=== PATIENT | female | born 1995 | race Caucasian/White ===

== ENCOUNTER 2023-08-16 17:24 | Emergency (ER) | payer SELFPAY ==
[2023-08-16 17:28] VITALS: BP 107/63
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
[2023-08-16 19:29] VITALS: BP 97/73
== END 2023-08-16 19:32 | disposition home or self-care (01) ==
LOC: EMR 17:24
PROVIDERS: EMERGENCY PHYSICIAN Emergency Medicine; FAMILY PHYSICIAN Family Medicine
DX: R51.9 Headache, unspecified (principal); V89.2XXA Person injured in unspecified motor-vehicle accident, traffic, initial encounter; Y92.410 Unspecified street and highway as the place of occurrence of the external cause; F90.9 Attention-deficit hyperactivity disorder, unspecified type; F17.200 Nicotine dependence, unspecified, uncomplicated
CPT/HCPCS: 99283; 73110; 73130; 73590; 73610; 73630

== ENCOUNTER 2023-10-22 11:24 | Emergency (ER) | payer SELFPAY ==
[2023-10-22 11:33] VITALS: BP 90/73
[2023-10-22 11:55] LABS: % Basophils 0.4 % (0-2); % Eosinophils 0.3 % (0-6); % Immature Granulocytes 0.2 % (0-0.5); % Monocytes 4.7 % (1.7-9.3); % Neutrophils 72.4 % (42.2-75.2); Absolute Lymphocytes 2.2 10^3/uL (1.2-3.4); Absolute Monocytes 0.5 10^3/uL (0.1-0.6); Absolute Neutrophils 7.3 10^3/uL (1.4-6.5); Hematocrit 37.8 % (37.0-47.0); Hemoglobin 13.4 g/dL (12.0-16.0); Mean Corp Hgb Conc. 35.4 g/dL (33.0-37.0); Mean Corpuscular Hgb 30.7 pg (27.0-31.0); Mean Corpuscular Volume 86.7 fL (81.0-99.0); Mean Platelet Volume 11.5 fL (7.4-10.4); Nucleated Red Blood Cells % 0 %; Platelet Count 235 10^3/uL (130-400); Red Blood Cell Count 4.36 10^6/uL (4.20-5.40); Red Cell Dist. Width 11.9 % (11.5-14.5); White Blood Cell Count 10.1 10^3/uL (4.8-10.8)
[2023-10-22 12:00] VITALS: BP 100/68
--- NOTE | 2023-10-22 12:09 | ED.GENMED ---
Addendum entered and electronically signed by Aleks Jc PA-C 10/25/23 07:57:
Urine culture with 100,000 colony-forming units of E. coli. Keflex sent to pharmacy. Spoke with patient regarding these results.
Original Note:
History of Present Illness
<LM Rolon Last Filed: 10/22/23 18:31>
General
Chief Complaint: Problems
Source: patient
Exam Limitations: none
Time Seen by Provider: 10/22/23 12:10
Nursing documentation reviewed up to this point in time: agreed with
History of Present Illness
History of Present Illness:
This is a 28 y/o female with a PMH of miscarriage presenting to emergency department today with concerns of vaginal bleeding and pelvic discomfort. Patient reports that she did a home test 2 weeks ago which was positive but believes
she may be 2 to 3 months based on her last menstrual period. Patient denies trauma to the abdomen. Patient denies any lightheadedness or dizziness. Patient states that has been unremarkable thus far other than morning sickness.
Patient has never had confirmed IUP via ultrasound, never had blood work done to confirm this . Patient does not currently follow with [facility]. Patient has never had abdominal surgery.
Past History
<LM Rolon Last Filed: 10/22/23 18:31>
Past History
ED Past Medical History: Other (ADHD, history of prior elective )
ED Past Surgical History: None
Patient has exhibited threatening behavior?: No
Social History
Tobacco: Smoker
Alcohol: Occasional
Drug: Marijuana
Personal: Single
Living: with family
Employment: Employed
Family History
Family History: Other (Noncontributory)
Review of Systems
<LM Rolon Last Filed: 10/22/23 18:31>
Review of Systems
All Other Systems: ROS reviewed and negative except as documented in HPI and ROS
Phy Exam
<Malgorzata Banegas PA-C - Last Filed: 10/22/23 18:31>
Physical Exam
Physical Exam:
General: Patient is well appearing and in no acute distress; non-toxic
Skin: Warm and dry, no rashes or lesions
Head: Normocephalic, atraumatic
Eyes: Sclera non-icteric. EOMs intact. PERRLA.
Cardiac: Regular rate and rhythm, no murmurs
Peripheral Vascular: No lower extremity swelling or edema
Pulm: Normal respiratory effort, no wheezes, rales, rhonchi
Abdomen: No abdominal tenderness to palpation
Neuro: CN II-XII intact, no focal neurologic deficits.
Psychiatric: Appropriate mood and affect.
Course
<LM Rolon Last Filed: 10/22/23 18:31>
Orders/Labs/Results
Orders:
Orders
10/22/23 11:46
Complete Blood Count/With Diff Urgent
Comprehensive Metabolic Panel Urgent
HCG, Beta Quantitative [Beta HCG Quantitative] Urgent
Is this a screen?: No
10/22/23 12:23
US 1st Trimester Urgent
Comment:
Reason For Exam: vaginal bleeding
10/22/23 12:24
Test Result ONCE
10/22/23 12:38
Type+Screen Urgent
Urinalysis Reflex To Culture Urgent
Date Specimen was Collected: 10/22/23
Time Specimen was Collected: 12:31
Urine Microscopic Reflex Cult Urgent
Urine Culture Urgent
NIC Source: U
Specimen Description:
Date Specimen was Collected: 10/22/23
Time Specimen was Collected: 12:31
Abnormal Lab Results
10/22/23 10/22/23
11:46 12:38
MPV 11.5 H fL
(7.4-10.4)
Absolute Neuts (auto) 7.3 H 10^3/uL
(1.4-6.5)
Calcium 11.2 H mg/dl
(8.4-10.2)
Urine Ketones 1+ A
(Negative)
Ur Occult Blood Reflex 1+ A
(Negative)
Urine Bacteria (Reflex) Many A
(Negative)
10/22/23 11:46
10/22/23 11:46
Vital Signs
Initial and Last Documented VS:
Initial Vital Signs
Temp Pulse Resp BP Pulse Ox
98.0 F 82 16 90/73 100
10/22/23 11:33 10/22/23 11:33 10/22/23 11:33 10/22/23 11:33 10/22/23 11:33
Last Documented Vital Signs
Temp Pulse Resp BP Pulse Ox
98.0 F 74 20 99/52 100
10/22/23 11:33 10/22/23 12:00 10/22/23 12:00 10/22/23 14:39 10/22/23 14:40
Information
Weeks gestation: Weeks: (8)
Location: Location: (intrauterine)
<Richard Aguilar MD - Last Filed: 10/22/23 14:43>
Orders/Labs/Results
Orders:
Orders
10/22/23 11:46
Complete Blood Count/With Diff Urgent
Comprehensive Metabolic Panel Urgent
HCG, Beta Quantitative [Beta HCG Quantitative] Urgent
Is this a screen?: No
10/22/23 12:23
US 1st Trimester Urgent
Comment:
Reason For Exam: vaginal bleeding
10/22/23 12:24
Test Result ONCE
10/22/23 12:38
Type+Screen Urgent
Urinalysis Reflex To Culture Urgent
Date Specimen was Collected: 10/22/23
Time Specimen was Collected: 12:31
Urine Microscopic Reflex Cult Urgent
Urine Culture Urgent
NIC Source: U
Specimen Description:
Date Specimen was Collected: 10/22/23
Time Specimen was Collected: 12:31
Abnormal Lab Results
10/22/23 10/22/23
11:46 12:38
MPV 11.5 H fL
(7.4-10.4)
Absolute Neuts (auto) 7.3 H 10^3/uL
(1.4-6.5)
Calcium 11.2 H mg/dl
(8.4-10.2)
Urine Ketones 1+ A
(Negative)
Ur Occult Blood Reflex 1+ A
(Negative)
Urine Bacteria (Reflex) Many A
(Negative)
10/22/23 11:46
10/22/23 11:46
Vital Signs
Initial and Last Documented VS:
Initial Vital Signs
Temp Pulse Resp BP Pulse Ox
98.0 F 82 16 90/73 100
10/22/23 11:33 10/22/23 11:33 10/22/23 11:33 10/22/23 11:33 10/22/23 11:33
Last Documented Vital Signs
Temp Pulse Resp BP Pulse Ox
98.0 F 74 20 99/52 100
10/22/23 11:33 10/22/23 12:00 10/22/23 12:00 10/22/23 14:39 10/22/23 14:40
Vijaylt;Malgorzata Banegas PA-C - Last Filed: 10/22/23 18:31>
MDM/Problems Addressed
Differential Diagnosis Includes:
Differentials include ectopic , implantation bleeding, miscarriage, placental abruption, vaginal lesion
MDM/Problems Addressed:
Pelvic discomfort, vaginal bleeding:
This is a 28 y/o female with a PMH of miscarriage presenting to emergency department today with concerns of vaginal bleeding and pelvic discomfort. Patient states that the bleeding started yesterday. Patient denies any dysuria. Patient has
had no confirmation of this and has not seen an [facility] yet. Patient believes she is about 3 months based on last menstrual period and had a at home test which was +2 weeks ago. On physical exam she is well-appearing,
does not only have any abdominal tenderness to palpation her vital signs are stable. Her H&H is stable. CMP unremarkable. She is AB+, no indication for RhoGAM at this time. Ultrasound reveals single intrauterine with estimated
gestational age of 8 weeks with normal heart rate and no evidence of subchorionic hemorrhage. Urinalysis not concerning for infection. Patient stable for discharge at this point, suspect possible implantation bleeding or physiologic
discharge of . Patient stable for discharge.
Chronic conditions affecting care:
n/a
Acute Exacerbation and/or Progression of Chronic Illness:
n/a
<Malgorzata Banegas PA-C - Last Filed: 10/22/23 18:31>
*Critical Care Note
Total Time (30-74mins, 75-104mins- exclusive of procedures): Not Applicable
ED Attending Note
<Malgorzata Banegas PA-C - Last Filed: 10/22/23 18:31>
-
Portions of this chart may have been created with voice recognition software.� Occasional wrong word or��sound alike� substitutions may have occurred due to the inherent limitations of voice recognition software.
<Richard Aguilar MD - Last Filed: 10/22/23 14:43>
ED Attending Note
Patient seen and examined by attending physician: Yes
ED Attending Note:
I have seen and evaluated the patient with a [id number] encounter. I have spoken to the advance practicer provider and involved in the medical history, the physical exam, medical decision making.
Evaluation and management service: agree unless noted differently below.
Results interpretation: agree unless noted differently below.
Focused HPI: 28-year-old female G2, presents to the emergency room for evaluation of spotting and lower abdominal pressure. Patient says that she recently had a positive home test but she is not exactly sure how long she has been
. She thinks that her last menstrual period was 2 to 3 months ago and so she estimates roughly 2 months . She says that recently she has been having some orangeish red spotting that is rather light and some mild lower abdominal
pressure. She thought that this was implantation bleeding but has not been able to establish care with an [facility]ENT[facility] due to insurance issues and so she decided to come to the emergency room to be evaluated.
Physical exam: Awake alert not in distress. Signs all within acceptable range. Abdomen soft, nontender to deep palpation.
Medical Decision Makin-year-old female presents with some spotting and lower abdominal pressure in the setting of recent positive home test. Estimates 2 to 3 months by last menstrual period. Difficulty establishing [facility]
care due to insurance issues although recently worked with her mother and is applying for insurance. Recent labs including a CBC and a CMP which were unremarkable. Her hCG quant was roughly 200,000. Urinalysis negative for bacteria. Type and
screen shows Rh+. She was sent for an abdominal ultrasound which showed live IUP roughly 8 weeks. Stable for discharge, she is already taking a vitamin and is working towards applying for insurance so that she can establish care with an
[facility] SCIENTIST. I did advise her regarding availability of free clinics for [facility] care and provided this information. All questions answered.
Discharge Plan
Departure
Patient Disposition: Home (Routine Discharge)
Date of Disposition: 10/22/23
Time of Disposition: 14:31
Patient with high blood pressure during this ER visit?: No
Condition: Good
Discharge Problem:
First trimester bleeding
Instructions: Bleeding in Early (DC)
Prescriptions:
No Action
No Current Medications
0
Referrals:
Mary Hensley DO [Family Provider] -
Stand Alone Forms: Return to Work
Activity Restrictions/Additional Instructions:
Please follow-up with an [facility].
Please return to the emergency department should you experience chest pain, shortness of breath, increased bleeding, pain, or any other signs or symptoms concerning to you.
Interventions
Interventions:
*Risk Screen - Suicide Last Done: 10/22/23 12:30
*General Assessment Last Done: 10/22/23 12:30
*Neglect/Abuse Screening Last Done: 10/22/23 12:30
*Nursing Disposition Last Done: 10/22/23 15:07
ED-Female Genitourinary Assessment Last Done: 10/22/23 12:30
Discharge Date and Time
Discharge Date/Time: 10/22/23 15:08
Print Language: SAO TOMEAN
[2023-10-22 12:14] LABS: ALT (SGPT) 15 U/L (0-35); AST (SGOT) 20 U/L (14-36); Albumin 4.7 g/dl (3.5-5.0); Alkaline Phosphatase 53 U/L (38-126); Blood Urea Nitrogen 9 mg/dl (7-17); Calcium 11.2 mg/dl (8.4-10.2); Carbon Dioxide 24 mmol/L (22-30); Chloride 100 mmol/L (98-107); Glucose 93 mg/dl (70-99); Potassium 4.5 mmol/L (3.5-5.1); Sodium 136 mmol/L (135-145); Total Bilirubin 0.6 mg/dl (0.2-1.3); Total Protein 7.4 g/dl (6.3-8.2); eGFR > 60.00
[2023-10-22 14:05] LABS: Urine Albumin Negative (Neg - Trace); Urine Bilirubin Negative (Negative); Urine Character Clear (Clear); Urine Color Yellow; Urine Glucose Negative (Negative); Urine Ketone 1+ (Negative); Urine Leukocyte Negative (Negative); Urine Nitrite Negative (Negative); Urine Occult Blood 1+ (Negative); Urine Specific Gravity 1.015 (<1.030); Urine Urobilinogen Negative (Neg - 1+); Urine pH 6.5 (5.0-9.0)
[2023-10-22 14:39] VITALS: BP 99/52
[2023-10-22 14:55] LABS: Urine Mucus Many
[2023-10-22 14:56] LABS: Urine Amorphous Seen; Urine Squamous Cell >30 /LPF (Few)
[2023-10-22 14:57] LABS: Urine Bacteria Many (Negative); Urine Red Blood Cell 0-2 /HPF (0-2)
== END 2023-10-22 15:08 | disposition home or self-care (01) ==
LOC: EMR 11:24
PROVIDERS: Emergency Medicine; Physician Assistant; EMERGENCY PHYSICIAN Emergency Medicine; FAMILY PHYSICIAN Family Medicine
DX: O20.9 Hemorrhage in early pregnancy, unspecified (principal); Z3A.08 8 weeks gestation of pregnancy; O23.41 Unspecified infection of urinary tract in pregnancy, first trimester; N39.0 Urinary tract infection, site not specified; O99.331 Smoking (tobacco) complicating pregnancy, first trimester; F17.200 Nicotine dependence, unspecified, uncomplicated; F90.9 Attention-deficit hyperactivity disorder, unspecified type
CPT/HCPCS: 99284; 76801; 80053; 81003; 81015; 84702; 85025; 86850; 86900; 86901; 87077; 87086; 87186

== ENCOUNTER → 2024-01-22 12:57 | Outpatient (REF) | payer OTHER, SELFPAY | LOC: PNTC 12:57 | PROVIDERS: ATTENDING PHYSICIAN Student in an Organized Health Care Education/Training Program; PRIMARYCARE PHYSICIAN Family Medicine | DX: Z36.0 Encounter for antenatal screening for chromosomal anomalies (principal) | CPT/HCPCS: 76805 ==

== ENCOUNTER 2024-01-28 16:19 | Emergency (ER) | payer OTHER, SELFPAY ==
[2024-01-28 16:36] VITALS: BP 109/56
--- NOTE | 2024-01-28 16:37 | ED.GENMED ---
ED Provider Triage
<Lily Rojas PA-C - Last Filed: 01/28/24 16:41>
-
Patient seen by provider in Triage?: Seen in Triage
Attestation: A medical screening examination has been initiated by a qualified medical provider. Based on the assessment performed at this time, it has been determined that an emergent medical condition may exist and the patient has been informed
that further medical evaluation and possible additional diagnostic testing may be needed.
HPI: 28yoF here with L flank pain that began this afternoon. +Chills. +Nausea, no vomiting. Currently 22 weeks . Hx of pyelonephritis and this feels the same. No abdominal pain or vaginal bleeding.
GENERAL: Alert , in no apparent distress
EYE: No visual abnormalities.
NECK: Trachea midline
ENT: No visible abnormalities.
LUNGS: No acute respiratory distress
NEUROLOGICAL: Alert and oriented
SKIN: Skin intact. No visible changes.
MUSCULOSKELETAL: Moving extremities normally
PSYCH: Normal and appropriate interaction.
This is a medical evaluation conducted in person to initiate diagnostic evaluation and provide initial therapeutics. Please see further documentation by the treating clinician.
CBC, CMP, UA, and renal ultrasound.
History of Present Illness
<Lily Rojas PA-C - Last Filed: 01/28/24 16:41>
General
Chief Complaint: Back Pain
Time Seen by Provider: 01/28/24 20:34
<Matt Padilla DO - Last Filed: 01/29/24 20:26>
General
Source: patient
Nursing documentation reviewed up to this point in time: agreed with
History of Present Illness
History of Present Illness:
28-year-old female presents to the emergency room complaining of left flank pain. Feels similar to when she had a kidney infection. Pain began suddenly today about 1 PM. She denies any certain movement or lifting initiating the pain. No focal
weakness numbness or tingling. Patient denies urinary pain or frequency. She had subjective chills. No shortness of breath.
Past History
<Lily Rojas PA-C - Last Filed: 01/28/24 16:41>
Past History
ED Past Medical History: Other (ADHD, history of prior elective )
ED Past Surgical History: None
Patient has exhibited threatening behavior?: No
Social History
Tobacco: Smoker
Alcohol: Occasional
Drug: Marijuana
Personal: Single
Living: with family
Employment: Employed
Family History
Family History: Other (Noncontributory)
Phy Exam
<Matt Padilla DO - Last Filed: 01/29/24 20:26>
Physical Exam
Physical Exam:
General: Awake, Alert, Oriented X3. No acute distress.
Vitals: unremarkable
Head: Atraumatic
Eyes: Pupils equal, EOMI
Throat: Airway intact, no exudates
Neck: Trachea midline
Lungs: Clear and equal b/l
Heart: Regular rate, no murmurs
Abd: Soft, Nontender, gravid uterus appropriate with dates, no pulsatile mass
Back: Left CVA tenderness to percussion
Neuro: Nonfocal
Skin: Warm, dry, no rash
Extremities: pulses equal b/l, no edema
Course
<Lily Rojas PA-C - Last Filed: 01/28/24 16:41>
Orders/Labs/Results
Orders:
Orders
01/28/24 16:22
Urinalysis Reflex To Culture Urgent
Date Specimen was Collected: 01/28/24
Time Specimen was Collected: 16:21
Urine Microscopic Reflex Cult Urgent
01/28/24 16:39
Renal & Bladder US [US Renal With Bladder] Urgent
Comment:
Reason For Exam: L flank pain
01/28/24 16:45
Complete Blood Count/With Diff Urgent
Comprehensive Metabolic Panel Urgent
01/28/24 20:41
Acetaminophen [Tylenol] 1,000 mg PO NOW STA
01/28/24 21:34
Cephalexin Monohydrate [Keflex] 500 mg PO NOW STA
Abnormal Lab Results
01/28/24 01/28/24
16:22 16:45
WBC 12.5 H 10^3/uL
(4.8-10.8)
RBC 3.73 L 10^6/uL
(4.20-5.40)
Hgb 11.7 L g/dL
(12.0-16.0)
Hct 33.0 L %
(37.0-47.0)
MCH 31.4 H pg
(27.0-31.0)
MPV 10.7 H fL
(7.4-10.4)
Abs Immat Gran (auto) 0.1 H 10^3/uL
(0-0.05)
Absolute Neuts (auto) 10.2 H 10^3/uL
(1.4-6.5)
Absolute Monos (auto) 0.8 H 10^3/uL
(0.1-0.6)
Immature Gran % 0.6 H %
(0-0.5)
Neutrophils % 81.0 H %
(42.2-75.2)
Lymphocytes % 11.3 L %
(20.5-51.1)
Creatinine 0.5 L mg/dL
(0.6-1.0)
Calcium 10.3 H mg/dl
(8.4-10.2)
Leukocyte Esterase Rfl Trace A
(Negative)
Urine Bacteria (Reflex) Few A
(Negative)
01/28/24 16:45
01/28/24 16:45
Vital Signs
Initial and Last Documented VS:
Initial Vital Signs
Temp Pulse Resp BP Pulse Ox
99.0 F 123 17 109/56 95
01/28/24 16:36 01/28/24 16:36 01/28/24 16:36 01/28/24 16:36 01/28/24 16:36
Last Documented Vital Signs
Temp Pulse Resp BP Pulse Ox
99.9 F 88 16 96/56 100
01/28/24 17:55 01/28/24 17:55 01/28/24 17:55 01/28/24 20:54 01/28/24 21:00
Vijaylt;Matt Padilla DO - Last Filed: 01/29/24 20:26>
Orders/Labs/Results
Orders:
Orders
01/28/24 16:22
Urinalysis Reflex To Culture Urgent
Date Specimen was Collected: 01/28/24
Time Specimen was Collected: 16:21
Urine Microscopic Reflex Cult Urgent
01/28/24 16:39
Renal & Bladder US [US Renal With Bladder] Urgent
Comment:
Reason For Exam: L flank pain
01/28/24 16:45
Complete Blood Count/With Diff Urgent
Comprehensive Metabolic Panel Urgent
01/28/24 20:41
Acetaminophen [Tylenol] 1,000 mg PO NOW STA
01/28/24 21:34
Cephalexin Monohydrate [Keflex] 500 mg PO NOW STA
Abnormal Lab Results
01/28/24 01/28/24
16:22 16:45
WBC 12.5 H 10^3/uL
(4.8-10.8)
RBC 3.73 L 10^6/uL
(4.20-5.40)
Hgb 11.7 L g/dL
(12.0-16.0)
Hct 33.0 L %
(37.0-47.0)
MCH 31.4 H pg
(27.0-31.0)
MPV 10.7 H fL
(7.4-10.4)
Abs Immat Gran (auto) 0.1 H 10^3/uL
(0-0.05)
Absolute Neuts (auto) 10.2 H 10^3/uL
(1.4-6.5)
Absolute Monos (auto) 0.8 H 10^3/uL
(0.1-0.6)
Immature Gran % 0.6 H %
(0-0.5)
Neutrophils % 81.0 H %
(42.2-75.2)
Lymphocytes % 11.3 L %
(20.5-51.1)
Creatinine 0.5 L mg/dL
(0.6-1.0)
Calcium 10.3 H mg/dl
(8.4-10.2)
Leukocyte Esterase Rfl Trace A
(Negative)
Urine Bacteria (Reflex) Few A
(Negative)
01/28/24 16:45
01/28/24 16:45
Vital Signs
Initial and Last Documented VS:
Initial Vital Signs
Temp Pulse Resp BP Pulse Ox
99.0 F 123 17 109/56 95
01/28/24 16:36 01/28/24 16:36 01/28/24 16:36 01/28/24 16:36 01/28/24 16:36
Last Documented Vital Signs
Temp Pulse Resp BP Pulse Ox
99.9 F 88 16 96/56 100
01/28/24 17:55 01/28/24 17:55 01/28/24 17:55 01/28/24 20:54 01/28/24 21:00
<Matt Padilla DO - Last Filed: 01/29/24 20:26>
MDM/Problems Addressed
Differential Diagnosis Includes:
Pyelonephritis, kidney stone, muscle strain
MDM/Problems Addressed:
Patient presents with left flank pain. She is afebrile here. White blood cell count mildly elevated at 12.5 however her urinalysis is significant only for trace leukocyte esterase. Microscopic evaluation shows 0-2 RBCs and 0-2 WBCs per high-power
field which is within normal range. Few bacteria are noted on the urinalysis. Ultrasound shows right hydro but no hydro on the left which is the symptomatic side. She does have a renal stone which is nonobstructing. Ureteral jets are observed
bilaterally. Given the patient is the fact she has any abnormality in her urine we will necessitate treatment with antibiotics. However it is unclear that this is minimally abnormal urinalysis is causing her flank pain. Perhaps the
patient has a stone which is intermittently obstructing and therefore the ultrasound does not show hydronephrosis at this time. Patient is comfortable enough to be discharged. We discharged her with Keflex. She understands she should return for
high fever, inability tolerate oral intake or any concerns.
<Matt Padilla DO - Last Filed: 01/29/24 20:26>
*Radiology
Radiology exam reviewed: radiology read reviewed
*Pulse Oximetry
Patient hypoxic: no
*Critical Care Note
Total Time (30-74mins, 75-104mins- exclusive of procedures): Not Applicable
ED Attending Note
<Lily Rojas PA-C - Last Filed: 01/28/24 16:41>
-
Portions of this chart may have been created with voice recognition software.� Occasional wrong word or��sound alike� substitutions may have occurred due to the inherent limitations of voice recognition software.
Discharge Plan
Departure
Patient Disposition: Home (Routine Discharge)
Date of Disposition: 01/28/24
Time of Disposition: 21:37
Patient with high blood pressure during this ER visit?: No
Condition: Good
Discharge Problem:
Acute left flank pain
Instructions: Kidney Stone, Adult ED, Urinary Tract Infection, Adult ED
Prescriptions:
New
cephalexin 500 mg capsule
500 mg PO BID 7 Days Qty: 14 0RF
No Action
cephalexin 500 mg capsule
500 mg PO Q8H 7 Days Qty: 21 0RF
Referrals:
Basil Reece MD [Active] -
Trung Espana MD [Family Provider] -
Interventions
Interventions:
*Risk Screen - Suicide Last Done: 01/28/24 20:55
*General Assessment Last Done: 01/28/24 20:55
*Neglect/Abuse Screening Last Done: 01/28/24 20:55
ED- Fall Risk Assessment Last Done: 01/28/24 20:55
*ED COVID-19 Vaccine History Last Done: 01/28/24 20:55
*Nursing Disposition Last Done: 01/28/24 21:56
ED-Musculoskeletal Assessment Last Done: 01/28/24 20:55
Discharge Date and Time
Discharge Date/Time: 01/28/24 21:57
Print Language: LATVIAN
[2024-01-28 16:39] LABS: Urine Albumin Negative (Neg - Trace); Urine Bilirubin Negative (Negative); Urine Character Clear (Clear); Urine Color Straw; Urine Glucose Negative (Negative); Urine Ketone Negative (Negative); Urine Leukocyte Trace (Negative); Urine Nitrite Negative (Negative); Urine Occult Blood Negative (Negative); Urine Urobilinogen Negative (Neg - 1+)
[2024-01-28 16:51] LABS: % Basophils 0.2 % (0-2); % Eosinophils 0.2 % (0-6); % Immature Granulocytes 0.6 % (0-0.5); % Lymphocytes 11.3 % (20.5-51.1); % Monocytes 6.7 % (1.7-9.3); Absolute Immature Granulocytes 0.1 10^3/uL (0-0.05); Absolute Lymphocytes 1.4 10^3/uL (1.2-3.4); Absolute Monocytes 0.8 10^3/uL (0.1-0.6); Absolute Neutrophils 10.2 10^3/uL (1.4-6.5); Hemoglobin 11.7 g/dL (12.0-16.0); Mean Corp Hgb Conc. 35.5 g/dL (33.0-37.0); Mean Corpuscular Hgb 31.4 pg (27.0-31.0); Mean Corpuscular Volume 88.5 fL (81.0-99.0); Mean Platelet Volume 10.7 fL (7.4-10.4); Nucleated Red Blood Cells % 0 %; Platelet Count 203 10^3/uL (130-400); Red Blood Cell Count 3.73 10^6/uL (4.20-5.40); Red Cell Dist. Width 13.2 % (11.5-14.5); White Blood Cell Count 12.5 10^3/uL (4.8-10.8)
[2024-01-28 16:57] LABS: Urine Red Blood Cell 0-2 /HPF (0-2); Urine Squamous Cell 0-2 /LPF (Few)
[2024-01-28 16:58] LABS: Urine Bacteria Few (Negative); Urine White Cell 0-2 /HPF (0-5)
[2024-01-28 17:07] LABS: ALT (SGPT) 29 U/L (0-35); AST (SGOT) 29 U/L (14-36); Alkaline Phosphatase 62 U/L (38-126); Blood Urea Nitrogen 8 mg/dl (7-17); Calcium 10.3 mg/dl (8.4-10.2); Carbon Dioxide 23 mmol/L (22-30); Chloride 102 mmol/L (98-107); Glucose 82 mg/dl (70-99); Potassium 3.8 mmol/L (3.5-5.1); Sodium 135 mmol/L (135-145); Total Bilirubin 0.3 mg/dl (0.2-1.3); eGFR > 60.00
[2024-01-28 17:55] VITALS: BP 100/70
[2024-01-28] MEDS: TYLENOL 1000 MG PO (20:47)
[2024-01-28 20:50] VITALS: BMI 26.4
[2024-01-28 20:54] VITALS: BP 96/56
[2024-01-28] MEDS: KEFLEX 500 MG PO (21:45)
== END 2024-01-28 21:57 | disposition home or self-care (01) ==
LOC: EMR 16:19
PROVIDERS: Emergency Medicine; Physician Assistant; EMERGENCY PHYSICIAN Emergency Medicine; FAMILY PHYSICIAN Family Medicine
DX: O99.891 Other specified diseases and conditions complicating pregnancy (principal); R10.9 Unspecified abdominal pain; Z3A.22 22 weeks gestation of pregnancy; O99.332 Smoking (tobacco) complicating pregnancy, second trimester; F17.200 Nicotine dependence, unspecified, uncomplicated
CPT/HCPCS: 99284; 76770; 80053; 81003; 81015; 85025

== ENCOUNTER 2024-02-27 22:48 | Inpatient (IN) | payer OTHER, SELFPAY ==
[2024-02-27] VITALS (9 sets, daily range): BP systolic 88–109; BP diastolic 48–68; BMI 27.4
[2024-02-27 18:10] LABS: % Basophils 0.2 % (0-2); % Eosinophils 0.1 % (0-6); % Immature Granulocytes 0.5 % (0-0.5); % Lymphocytes 6.6 % (20.5-51.1); % Monocytes 5.5 % (1.7-9.3); % Neutrophils 87.1 % (42.2-75.2); Absolute Immature Granulocytes 0.1 10^3/uL (0-0.05); Absolute Lymphocytes 0.8 10^3/uL (1.2-3.4); Absolute Monocytes 0.7 10^3/uL (0.1-0.6); Absolute Neutrophils 10.6 10^3/uL (1.4-6.5); Hematocrit 35.1 % (37.0-47.0); Hemoglobin 12.4 g/dL (12.0-16.0); Mean Corp Hgb Conc. 35.3 g/dL (33.0-37.0); Mean Corpuscular Hgb 30.8 pg (27.0-31.0); Mean Corpuscular Volume 87.3 fL (81.0-99.0); Nucleated Red Blood Cells % 0 %; Platelet Count 176 10^3/uL (130-400); Red Blood Cell Count 4.02 10^6/uL (4.20-5.40); Red Cell Dist. Width 12.9 % (11.5-14.5); White Blood Cell Count 12.2 10^3/uL (4.8-10.8)
--- NOTE | 2024-02-27 18:14 | ED.GENMED ---
History of Present Illness
General
Chief Complaint: Flank Pain
Source: patient
Exam Limitations: none
Time Seen by Provider: 02/27/24 17:55
History of Present Illness
History of Present Illness:
This is a 28 year old female that comes in with c/o right sided flank and lower abd pain. States that she was here the other day and had pain in the left States that know she has pain on the right an pain in the lower abd. States that she is 26
weeks . States that now she has a fever with chills, nausea and vomited twice, States that she also feels dizzy. Patient use took Tylenol 1000mg 1 hour before coming. Denies any chest pain, diarrhea, urinary burning
Past History
Past History
ED Past Medical History: Other (ADHD, history of prior elective , Headache, Renal calculus, UTI, Pyelonephritis,); Negative Asthma, HTN, Hypercholesterolemia or NIDDM
ED Past Surgical History: None
Patient has exhibited threatening behavior?: No
Social History
Tobacco: Former smoker
Alcohol: None
Drug: Marijuana
Personal: Single
Living: with family
Employment: Employed
Family History
Family History: Other (Noncontributory)
Review of Systems
Review of Systems
All Other Systems: ROS reviewed and negative except as documented in HPI and ROS
Constitutional: Reports fever and chills
EENT: Reports no symptoms
Respiratory: Reports trouble breathing; Denies cough
Cardiac: Denies chest pain
ABD/GI: Reports abdominal pain, nausea and vomiting; Denies diarrhea
: Reports flank pain (Right sided); Denies dysuria, frequency or urgency
Musculoskeletal: Reports no symptoms
Skin: Reports no symptoms
Neurological: Reports dizzy; Denies headache
Psychiatric: Reports no symptoms
Phy Exam
General Physical Exam
General Presentation: mild distress
General age: appears stated age
General Skin: warm and dry
General Habitus: normal
General Mental: alert
General Hydration: appears well hydrated
ENT Exam
ENT Exam: TM's normal, pharynx normal and neck supple
Eye Exam
Eye Exam: EOMI
Cardiovascular Exam
Cardiovascular Exam: no edema, no murmur, normal peripheral pulses and tachycardia
Pulmonary Exam
Pulmonary Exam: lungs clear, no respiratory distress, no rales, chest non tender, no crackles, no rhonchi, no wheezing and no cough
Gastrointestinal Exam
Gastrointestinal Exam: normal bowel sounds, non tender, soft, no organomegaly and no pulsatile mass
Musculoskeletal Exam
Musculoskeletal Exam: full ROM and no edema
Skin Exam
Skin Exam: normal color, warm/dry, no rash and no petechia
Psychiatric Exam
Psychiatric Exam: normal mood/affect
Course
Orders/Labs/Results
Orders:
Orders
02/27/24 Breakfast
NPO
Allow oral meds: Yes
Allow clear liquids: No
02/27/24 17:45
EKG [Electrocardiogram (*1)] Urgent
Reason for Study: Bradycardia / Tachycardia
EKG- Treatment ONCE
02/27/24 17:58
Complete Blood Count/With Diff Urgent
Comprehensive Metabolic Panel Urgent
Lactic Acid Q4H
Comment: ON ICE, CANCEL 2ND ORDER IF FIRST LACTIC ACID LEVEL <2
Urinalysis Reflex To Culture Urgent
Date Specimen was Collected: 02/27/24
Time Specimen was Collected: 17:28
Urine Microscopic Reflex Cult Urgent
Blood Culture Urgent
NIC Source: Blood/Venous
Specimen Description:
Urine Culture Urgent
NIC Source: U
Specimen Description:
Date Specimen was Collected: 02/27/24
Time Specimen was Collected: 17:28
02/27/24 18:06
COVID-19 Antigen Urgent
Source: Nasal Swab
Influenza A+B Rapid Molecular Urgent
NIC Source: Nasal Swab
Specimen Description:
02/27/24 18:07
0.9% Sodium Chloride 1000 ml [Nss] 1,000 ml IV BOLUS
Morphine Sulfate 2 mg IV NOW STA
US Limited Urgent
Reason For Exam: Mid lower abd pain
US Renal Only W/O Bladder Urgent
Comment:
Reason For Exam: Right flank pain
02/27/24 18:16
Metoclopramide [Reglan] 10 mg IV NOW STA
02/27/24 20:25
CefTRIAXone [Rocephin] 1,000 mg IV NOW STA
02/27/24 22:00
Flush (0.9% Sodium Chloride) [Flush (Nss)] See Dose Instructions IV PER PROTOCOL
02/27/24 22:08
Acetaminophen [Tylenol] 1,000 mg PO NOW STA
02/27/24 22:22
PROFESSOR OF SOCIOLOGY CONSULT Routine
Consulting Provider: Svitlana Ohara
Was physician already notified: Yes
02/27/24 22:25
UROLOGY CONSULT Routine
Consulting Provider: Vasiliy Grey Jr.
Was physician already notified: Yes
02/27/24 22:29
Admit/Transfer Patient As Directed
Co-Sign Provider:
Level of Care: Inpatient admission
Assign to:: Telemetry
Physician / Group: [place]
Diagnosis: Sepsis, Pyelonephritis
Reason for Telemetry: Arrhythmia
Date to Stop Telemetry: 03/01/24
Time to Stop Telemetry: 11:00
Reason for Hospitalization: IVFs, IV abx
Expected length of stay greater than two midnights?: Yes
ELOS- Estimated Length of Stay in days: 3
I certify the patient meets the requirements for IP care: Yes
PRN Pain Medication Management As Directed
May give lesser potent ordered pain med per pt: Yes
preference::
Protocol:: Medication orders for pain may be administered in a
manner that supports deferring to patient preference
when the pt is:
- Requesting an ordered lesser potent pain medication.
Least to most potent pain medications are defined
as: acetaminophen < NSAID < tramadol < opioids
(morphine, oxycodone, hydromorphone).
- Requesting a lesser dose of the same medication IF
ORDERED.
- Requesting a less intrusive route of administration
if both routes are prescribed by the provider (PO <
IV).
02/27/24 22:30
Code Status As Directed
Resuscitation Status: Full Code
02/27/24 22:45
0.9% Sodium Chloride 1000 ml [Nss] 1,000 ml IV 125 mls/hr
02/27/24 23:01
Acetaminophen [Tylenol] 650 mg PO Q4HPRN PRN
02/27/24 23:01
Activity As Directed
Activity Level: Out of Bed-Early Mobility
I&O [Intake/ Output] As Directed
Frequency: q12h
Pneumatic Compression Sleeves As Directed
Type: Knee high
Vital Signs As Directed
Frequency: Per unit guidelines
Weight As Directed
Frequency: Daily
DX Deep Vein Thrombosis Video Routine
02/28/24 06:00
Complete Blood Count/No Diff IN AM
02/28/24 20:00
CefTRIAXone [Rocephin] 1,000 mg IV Q24H
03/01/24 11:00
DC Protocol for Telemetry ONCE
Abnormal Lab Results
02/27/24
17:58
WBC 12.2 H 10^3/uL
(4.8-10.8)
RBC 4.02 L 10^6/uL
(4.20-5.40)
Hct 35.1 L %
(37.0-47.0)
MPV 11.0 H fL
(7.4-10.4)
Abs Immat Gran (auto) 0.1 H 10^3/uL
(0-0.05)
Absolute Neuts (auto) 10.6 H 10^3/uL
(1.4-6.5)
Absolute Lymphs (auto) 0.8 L 10^3/uL
(1.2-3.4)
Absolute Monos (auto) 0.7 H 10^3/uL
(0.1-0.6)
Neutrophils % 87.1 H %
(42.2-75.2)
Lymphocytes % 6.6 L %
(20.5-51.1)
Sodium 132 L mmol/L
(135-145)
Carbon Dioxide 18 L mmol/L
(22-30)
Creatinine 0.5 L mg/dL
(0.6-1.0)
Calcium 11.1 H mg/dl
(8.4-10.2)
Ur Occult Blood Reflex 1+ A
(Negative)
Leukocyte Esterase Rfl 2+ A
(Negative)
Urine WBC (Reflex) 30-40 A /HPF
(0-5)
Urine Bacteria (Reflex) Few A
(Negative)
02/27/24 17:58
02/27/24 17:58
Leukocytosis, Sodium slightly low. Carbon dioxide low. Calcium slightly elevated. Urine positive for infection.
Vital Signs
Initial and Last Documented VS:
Initial Vital Signs
Temp
101.1 F H
02/27/24 17:25
Last Documented Vital Signs
Temp Pulse Resp BP Pulse Ox
99.6 F 104 21 95/59 99
02/28/24 01:35 02/28/24 01:25 02/28/24 01:25 02/28/24 01:25 02/28/24 01:24
MDM/Problems Addressed
Differential Diagnosis Includes:
Renal calculus, UTI Pyelonephritis, COVID, Influenza
MDM/Problems Addressed:
This is a 28 year old female that comes in with c/o right flank pain and lower abd pain. States that this started today. States that now she has fever with chills.
Will check labs, Renal ultrasound, IV fluids, Medicated with Morphine and Reglan. Obtain a urine
US cont- Cervical length is 6.3cm.
Back into see patient. Explained that there is hydronephrosis on the right but no renal calculus was seen. Will admit. Hospitalist notified
Chronic conditions affecting care:
Renal calculus, UTI,
Acute Exacerbation and/or Progression of Chronic Illness:
Renal calculus, UTI
*Radiology
Radiology exam reviewed: radiology read reviewed (Renal ultrasound- No sonographically demonstratable renal calculus, bilaterally. Progressive moderate to advanced right hydronephrosis without a right ureteral jet identified in the region of the
urinary bladder. ) and other (US- Single live intrauterine gestation in cephalic position. Estimated gestational age is 26 weeks 3 days. The heart rate is 169bpm. The placenta is anterior. There is no previa. Amniotic fluid volume is subjectively
within normal limits for gestational age. Internal os is closed. The cervical)
*Pulse Oximetry
Patient hypoxic: no
*EKG
Interpreted by ED Provider?: NA
Rate: EKG- N/A
*Problem Manager Interpretation
Rate: tachycardiac
Heart Rate: 100
Rhythm: sinus tachycardia
*Critical Care Note
Total Time (30-74mins, 75-104mins- exclusive of procedures): Not Applicable
ED Attending Note
-
Portions of this chart may have been created with voice recognition software.� Occasional wrong word or��sound alike� substitutions may have occurred due to the inherent limitations of voice recognition software.
Discharge Plan
Departure
Patient Disposition: Admit
Date of Disposition: 02/27/24
Time of Disposition: 20:51
Admit to: Med/Surg
Presentation/result/management discussed w/ accepting MD/DO: Hospitalist
Patient with high blood pressure during this ER visit?: No
Condition: Good
Covid-19: Negative COVID-19
Discharge Problem:
UTI (urinary tract infection)
Interventions
Interventions:
*Risk Screen - Suicide Last Done: 02/27/24 17:25
*General Assessment Last Done: 02/27/24 17:25
*Neglect/Abuse Screening Last Done: 02/27/24 17:25
ED- Fall Risk Assessment Last Done: 02/28/24 00:17
*ED COVID-19 Vaccine History Last Done: 02/27/24 19:16
*Nursing Disposition Last Done: 02/28/24 00:17
DT-Xzygny-Mmlyxgdkqo Assessment Last Done: 02/27/24 19:16
ED-Female Genitourinary Assessment Last Done: 02/27/24 19:16
Discharge Date and Time
Discharge Date/Time: 02/28/24 00:18
[2024-02-27 18:19] LABS: Lactic Acid 1.2 mmol/L (0.7-2.0)
[2024-02-27] MEDS: MORPHINE SULFATE 2 MG IV (18:20)
[2024-02-27] MEDS: REGLAN 10 MG IV (18:21)
[2024-02-27] MEDS: NSS 1000 IV ×2 (18:21→22:57)
[2024-02-27 18:25] LABS: ALT (SGPT) 18 U/L (0-35); AST (SGOT) 21 U/L (14-36); Albumin 4.2 g/dl (3.5-5.0); Alkaline Phosphatase 84 U/L (38-126); Blood Urea Nitrogen 8 mg/dl (7-17); Calcium 11.1 mg/dl (8.4-10.2); Carbon Dioxide 18 mmol/L (22-30); Chloride 101 mmol/L (98-107); Estimated Creatinine Clearance > 125 ml/min; Glucose 85 mg/dl (70-99); Potassium 3.5 mmol/L (3.5-5.1); Sodium 132 mmol/L (135-145); Total Bilirubin 0.3 mg/dl (0.2-1.3); Total Protein 7.2 g/dl (6.3-8.2); eGFR > 60.00
[2024-02-27 18:29] LABS: COVID-19 Antigen Negative (Negative)
[2024-02-27 19:53] LABS: Urine Albumin Trace (Neg - Trace); Urine Bilirubin Negative (Negative); Urine Character Clear (Clear); Urine Color Yellow; Urine Glucose Negative (Negative); Urine Ketone Negative (Negative); Urine Leukocyte 2+ (Negative); Urine Nitrite Negative (Negative); Urine Occult Blood 1+ (Negative); Urine Specific Gravity 1.005 (<1.030); Urine Urobilinogen Negative (Neg - 1+)
[2024-02-27 20:07] LABS: Urine Red Blood Cell 0-2 /HPF (0-2); Urine Urothelial Cell 0-2 /LPF (FEW); Urine White Cell 30-40 /HPF (0-5)
[2024-02-27 20:08] LABS: Urine Bacteria Few (Negative)
[2024-02-27] MEDS: ROCEPHIN 1000 MG IV (20:48)
[2024-02-27] MEDS: TYLENOL 1000 MG PO (22:19)
--- NOTE | 2024-02-27 22:27 | W.PN.UPDATE ---
Update Note
Progress Note Update
Patient seen in conjunction with [facility]. I concur with the history and physical as well as the assessment and plan.
This is a 88-year-old female, 26 weeks presenting to the emergency department with flank pain.
c/o right sided flank and lower abd pain. And febrile at home for which she took a gram of Tylenol before coming to the emergency department. She did have nausea or vomiting. She also feels dizzy and is tachycardic on arrival.
Patient was recently seen in the ED and was noted to have some mild right-sided hydro and a 3 mg left kidney stone.
Today in the ED she was febrile to 102.3, blood pressure was 100/50 with a pulse of 104. Leukocytosis was 12.2 with a normal hemoglobin and platelet count. Electrolytes BUN/creatinine were within normal limits. A repeat ultrasound shows worsening
of the right sided hydro.
Assessment and plan
Pyelonephritis - Complicated pyelonephritis with sepsis and right sided hydro. 26 wks .
- admit to telemetry
- blood cultures and urine cultures sent
- iv ceftriaxone
- urology consulted and aware, possible OR overnight
- NPO, IV fluids, pain control, antipyretics and antiemetics
DVT PPX - SCD
Code status - Full Code
--- NOTE | 2024-02-27 22:36 | HPS.HSE ---
Family Physician
-
Family Physician: Trung Espana
Chief Complaint
-
Fever and Right Flank Pain
History of Present Illness
Patient is a 28 y/o female who is currently 26 weeks gestation who presents with fever, vomiting and right flank pain. Patient describes pain in the right flank radiating down to the right groin. She reports fevers as high 103F. She reports
vomiting, but denies diarrhea. She denies dysuria, urinary frequency or hematuria. She reports prior history of pyelonephritis.
Medical History
Past Medical History
Past Medical History: Reports Other
Additional Past Medical History:
Nephrolithiasis
Pyelonephritis
Past Surgical History: Reports None
Social History
Tobacco: Former Smoker
Alcohol: None
Family History
Family History: Not pertinent
Allergies / Home Medications
Allergies reflects when Allergies were last updated in [facility].
Home Medications with original date entered in [facility]
Allergy/Medication List:
Allergies
Allergy/AdvReac Type Severity Reaction Status Date / Time
No Known Allergies Allergy Verified 10/22/23 11:34
Home Medications
acetaminophen 500 mg tablet (Tylenol Extra Strength) 1,000 mg PO DAILYPRN PRN mild pain 02/27/24
vit no.133-ferrous fumarate 28 mg-folic acid 800 mcg tablet () 1 tab PO DAILY 02/27/24
Review of Systems
-
A 12 point ROS was completed and negative except as noted: Yes
Constitutional: Reports Fever
Respiratory: Denies Cough or Trouble Breathing
Cardiac: Denies Chest Pain or Palpitations
Abdomen/GI: Reports Vomiting
: Reports See HPI
Physical Exam
Vital Signs
Vital Signs
Temp Pulse Resp BP Pulse Ox
103.0 F H 110 41 107/60 96
02/27/24 22:10 02/27/24 21:45 02/27/24 21:45 02/27/24 21:00 02/27/24 21:45
Physical Exam
General: Well Developed, Well Nourished and Conversant
HEENT: NormoCephalic, Anicteric and Atraumatic
Respiratory: Clear and Non Labored Respirations
Cardiac: S1/S2, Regular Rhythm and Tachycardia
GI: Soft and Other (Gravid uterus palpable on exam)
Genito-urinary: Other (Mild right flank tenderness to palpation)
Musculoskeletal: No Clubbing and No Cyanosis
Skin: Warm and Dry
Neuro: Awake, Alert, Oriented and Nonfocal/grossly intact
Psych: Calm
Laboratory Results
-
02/27/24 17:58
02/27/24 17:58
Laboratory Results
Lactic Acid 1.2 mmol/L (0.7-2.0) 02/27/24 17:58
Total Bilirubin 0.3 mg/dl (0.2-1.3) 02/27/24 17:58
AST 21 U/L (14-36) 02/27/24 17:58
ALT 18 U/L (0-35) 02/27/24 17:58
Alkaline Phosphatase 84 U/L (38-126) 02/27/24 17:58
Data Reviewed
-
Lab Data: Labs Reviewed by me
Impression/Plan
-
Sepsis secondary to Pyelonephritis with New Right Hydronephrosis
-Reviewed with Urology - Continue NPO for possible OR this evening
-Continue Ceftriaxone
-Continue IVFs
, 26 Weeks Gestation
-Consult Obstetrics
DVT proph: SCDs
Code Status: Full Code
[2024-02-27] MEDS: FLUSH (NSS) 1 FLUSH IV (22:58)
--- NOTE | 2024-02-27 23:22 | CON.MD ---
Consultation - Medical
-
pt seen and examined
see dictated note
pt with hx of uti/pyelo per her report
26 weeks preg/ 2nd preg- 1st miscar.
seen in Er with right flank pain/ temp of 103/ nausea and vomiting
tachy- bp low but stable
pt in no acute distress- but feels poorly- one hour after tylenol and rocephin admin no sig drop in temp
fetus tachy- but not in distress currently
u/s with new right sided hydro
reviewed with pt/med team and anesthesia and OB team
given tachy- ob feels stent is needed more urgently
high risks- all reviewed with pt and mother by phone including loss
will bring to OR for cysto/stent
--- NOTE | 2024-02-27 23:23 | CON.MD ---
Consultation - Medical
-
Consult:
HPI: Patient is a 28yo @26.2 presents with right sided flank pain and fevers. She said the pain and fevers started around 2pm. She took Tylenol and still had a fever so she came to the ED. She was in the ED at the beginning of January and was
found to have a left sided kidney stone. She does not have pain on the left side now. She does report a history of pyelonephritis. She denies contractions, vaginal bleeding or leakage of fluid. +FM.
ROS negative unless noted in the HPI
complications:
- 2cm fibroid
- Left 3mm kidney stone, non-obstructing
- LSIL, +HPV Pap, colpo with CIN1. Needs repeat Pap in 1yr
- Adderall and medical marijuana use- stopped w/ positive UPT
- Late to care at 13wks
PMHx: ADHD, kidney stone
Meds: PNV
Surghx: denies
NKDA
Socialhx: denies current tobacco, etoh or illicit drug use
Famhx: dad w/ CHF
OBHx:
O:
BP 107/60, HR 110, Temp 103.0
General: resting in bed
Cardio: tachycardic
Pulm: no increased work of breathing
Abd: gravid, nontender
Ext: non tender
FHT: 170 baseline/moderate variability/+accelerations/occasional variable deceleration lasting 10 seconds with spontaneous return to baseline
[place]: occasional ctx with irritability
Labs:
12.2>12.4/35.1<176, BUN/Cr 8/0.5, AST/ALT 21/18
A/P: 28yo @26.2 with right sided hydronephrosis and fever
- NST with tachycardia. Likely secondary to patient being febrile. Continuous EFM until OR. Will resume continuous EFM after OR
- Renal US with no calculus bilaterally. There is progressive moderate to advanced right sided hydronephrosis without right ureteral jet identified
- Case discussed with CINDY Lamas. He feels that patient should have stent placement or nephrostomy tonight since she has remained febrile despite Tylenol and ceftriaxone with concern that her condition could worsen overnight. Recommend
aggressive IV fluid hydration and continue with antibiotics. Do not deliver for tachycardia since patient is febrile. Recommend continuous EFM before and after OR
- Patient to go to OR for cystoscopy and stent placement with Dr. Grey. Patient aware of risks of anesthesia and stent placement while
- If patient is decompensating with possible need for delivery, will recommend transfer as the NICU only accepts >32wks
- Patient will likely be transferred to ICU follow cysto and stent placement
[2024-02-28] VITALS (25 sets, daily range): BP systolic 86–152; BP diastolic 42–98; BMI 27.4
[2024-02-28] MEDS: MAALOX 30 ML PO
--- NOTE | 2024-02-28 00:53 | W.IMMPOSTOP ---
Surgical Immed Post Op Note
-
Primary Surgeon:
yuridia
Assisting Surgeon:
Pre-op Diagnosis:
pyelo/right hydro
Post-op Diagnosis:
same
Procedure Performed:
cysto- right retrograde and stent
Anesthesia Type:
gen
Specimen / Cultures:
none
Estimated Blood Loss:
1cc
Complications:
none
Operative Findings:
sig dilation of ureter with ureteral making a loop at upj- able to navigate and straighten with wire and stent
6f/26cm stent placed
loco placed
to pacu in stable condition- team on site
[2024-02-28] MEDS: MORPHINE SULFATE 2 MG IV ×2 (01:46→16:28)
[2024-02-28 01:51] LABS: % Basophils 0.5 % (0-2); % Immature Granulocytes 0.2 % (0-0.5); % Lymphocytes 21.5 % (20.5-51.1); % Monocytes 0.5 % (1.7-9.3); % Neutrophils 77.3 % (42.2-75.2); Absolute Lymphocytes 0.9 10^3/uL (1.2-3.4); Absolute Neutrophils 3.3 10^3/uL (1.4-6.5); Hematocrit 38.5 % (37.0-47.0); Mean Corp Hgb Conc. 33.8 g/dL (33.0-37.0); Mean Corpuscular Hgb 31.4 pg (27.0-31.0); Mean Platelet Volume 10.8 fL (7.4-10.4); Nucleated Red Blood Cells % 0 %; Platelet Count 189 10^3/uL (130-400); Red Blood Cell Count 4.14 10^6/uL (4.20-5.40); Red Cell Dist. Width 12.9 % (11.5-14.5); White Blood Cell Count 4.3 10^3/uL (4.8-10.8)
[2024-02-28] MEDS: NSS 1000 IV ×3 (01:58→22:25)
--- NOTE | 2024-02-28 01:59 | PTCARENOTE ---
While transferring pt to her room in ICU 3361: during transport pt started having rigors and bought to her and RN made aware. Nelly RN and [place] [employer] PRESIDENT at bedside.
--- NOTE | 2024-02-28 02:00 | PTCARENOTE ---
Pt s/p cysto and right stent placement, arrived to the ICU room 3361, with HR 150s, shaking saying her legs and lower back were 'all cramped up and hurt so bad'. Unable to attain O2 Sat 2/2 shaking, NRB mask applied, OB at bedside to assess
status. Anesthesia called to bedside. DEPARTMENT SECRETARY [place] at bedside. Pt screaming out shaking, writhing in pain. Labs sent. Temp 99.6 axillary. 2mg Morphine given IV as ordered. After morphine, pt relaxed, HR 110, BP stable, 100% on NRB (weaned down to
RA). Pt moved to 3372 for monitor application. Pt called father of the baby, as well as her mom, and is resting comfortably. Will monitor closely.
[2024-02-28 02:01] LABS: INR 0.95; PT 13.1 Sec (11.4-14.6)
--- NOTE | 2024-02-28 02:05 | W.PN.UPDATE ---
Update Note
Progress Note Update
Patient arrived to the ICU in severe rigors and screaming. Temp 99.6. Patient�stated she is �cramping up.� �Dr. Ohara, (OB physician), at bedside with doppler concerned for baby�s low heart rate. �Patient continued in distress. Situation
discussed with OB and urology and decision was made to give 2mg of morphine. �Anesthesia and Urology did not think symptoms were related to any meds given or from�recent procedure. Patient stabilize out from morphine bolus and baby's heart return
back to within normal limits. ��Dr. Nichole was also at bedside and concerns were discussed if patient continues to decompensate to transfer to appropriate level of care. �[place] transfer center notified, situation discussed between [place] OB
physician, Dr. Ohara, and myself. Decision made to continue care at [facility] because patient has stabilized out, but if she continues decompensate, transfer will be appropriate. Baby�s heart rate is currently being monitor on OB
monitor.�
[2024-02-28 02:11] LABS: ALT (SGPT) 20 U/L (0-35); AST (SGOT) 27 U/L (14-36); Albumin 4.4 g/dl (3.5-5.0); Alkaline Phosphatase 69 U/L (38-126); Blood Urea Nitrogen 9 mg/dl (7-17); Calcium 10.6 mg/dl (8.4-10.2); Carbon Dioxide 16 mmol/L (22-30); Chloride 104 mmol/L (98-107); Estimated Creatinine Clearance 109 ml/min; Glucose 116 mg/dl (70-99); Magnesium 1.8 mg/dl (1.6-2.3); Phosphorus 5.2 mg/dl (2.5-4.5); Potassium 5.1 mmol/L (3.5-5.1); Sodium 138 mmol/L (135-145); Total Bilirubin 0.6 mg/dl (0.2-1.3); Total Protein 7.6 g/dl (6.3-8.2); eGFR > 60.00
--- NOTE | 2024-02-28 02:47 | W.PN.UPDATE ---
Update Note
Progress Note Update
Patient was seen in PACU after cystoscopy and right stent placement for right sided hydronephrosis. When patient was first seen in PACU, she was feeling better and resting comfortably. FHT were in the 150s. Temp had improved to 99. She was then seen
in PACU prior to transfer to ICU. Right before patient was transferred to ICU she began shaking saying that she was cold and could not control shaking. She was transferred to ICU and while in transport she started complaining of rigors and extreme
leg pain. She was screaming in pain and asking for help. On arrival to ICU, patient continued with rigors saying she was having pain everywhere. She also had difficulty breathing. HR was in the 150-160s. ICU COUPON CLERK was present and anesthesia was called
to bedside. There was difficulty picking up SpO2 since patient was shaking. While patient was moving in pain, there was difficulty picking up heart tones and bedside ultrasound was performed. heart rate appeared in the 60s but then
started to increase. Patient was given 2mg of morphine and rigors started to improve. Doppler was then brought to bedside and FHTs were in the 160-170s. It was then realized that the room patient was in was not able to connect to OB [place] and
the rooms that allowed monitoring were occupied. Doppler was continuously held on patient's abdomen by RN to obtain heart tones. Since patient decompensated quickly after surgery, transfer was considered, however now that patient has
stabilized she can continue care here. Patient was moved to a room that allowed continuous monitoring. FHT now 160 baseline/moderate variability/no accelerations/no decelerations. [place] with contractions q3 minutes. Patient denies feeling
contractions. At 0400, patient was examined and reports feeling much better. She says she feels like her bladder is full but denies any cramping or contractions. SSE performed- cervix visually closed, physiologic discharge. SVE cl/th/hi (external os
1cm, but internal os closed). FHT 140 baseline/moderate variability/+accelerations/no decelerations. [place] with periods of contractions q2-3 minutes, contractions lasting 10-30 seconds. Continue to monitor closely.
[2024-02-28 02:56] LABS: Procalcitonin 0.11 ng/ml (0.0-0.25)
--- NOTE | 2024-02-28 06:00 | PTCARENOTE ---
OB to see patient overnight. Pt remains in good spirits/appreciative and cooperative. HR 90s, BP 90s/60s. [place] tinged urine, 950cc overnight. Repeat labs pending. Safe environment maintained, emotional support provided. Will monitor.
[2024-02-28 06:27] LABS: Hematocrit 29.2 % (37.0-47.0); Hemoglobin 10.4 g/dL (12.0-16.0); Mean Corp Hgb Conc. 35.6 g/dL (33.0-37.0); Mean Corpuscular Hgb 31.7 pg (27.0-31.0); Mean Platelet Volume 10.6 fL (7.4-10.4); Platelet Count 151 10^3/uL (130-400); Red Blood Cell Count 3.28 10^6/uL (4.20-5.40); Red Cell Dist. Width 12.9 % (11.5-14.5); White Blood Cell Count 20.8 10^3/uL (4.8-10.8)
[2024-02-28 06:38] LABS: Lactic Acid 0.8 mmol/L (0.7-2.0)
--- NOTE | 2024-02-28 07:16 | W.PN.URO.CBU ---
Today's Communication / Plan
-
continue loco/stent/antibx
OB following
Assessment / Plan
-
UTI/pyelo with right hydro- suspect uterine compression
s/p right ureteral stent
pt improved
urologically stable
continue iv fluids/antibx- await cx results
will leave loco today to reduce change of stent/bladder spasms as a potential confusing factor in care- if stable tomorrow can remove for TOV
again reviewed plan of care with pt going forward in terms of diligent f/u and need for regular stent exchanges throughout and overall risks at this time
will follow
Diagnosis
-
Date of Service: February 28, 2024
-
Patient Diagnosis:
UTI/pyelo
right hydro- suspected due to uterine compression
Post Op Day:
right ureteral stent 02/27
Subjective
-
pt had episode of what sound like chills and rigors post op- responded to pain control
afebrile since stent placement- wbc was very low post op- now elevated c/w infection/sepsis
this am says she feels much better
loco in place- urine sher colored
cx's pending
Objective
-
Vital Signs
Temp Pulse Resp BP Pulse Ox
98.5 F 87 28 93/64 98
02/28/24 06:31 02/28/24 06:30 02/28/24 06:30 02/28/24 06:15 02/28/24 06:30
Intake and Output
02/27/24 02/28/24 02/29/24
06:59 06:59 06:59
Intake Total 825 / 825
Output Total 1200 / 1200
Balance -375 / -375
Intake:
IV fluids (Total) 825 / 825
Normosol 200 / 200
Nss 1,000 ml @ 125 mls/hr IV . 625 / 625
Q8H SUSHANT Rx#:[id number]
Output:
Urine, [place] 1200 / 1200
Laboratory Results
02/28/24 06:06
02/28/24 01:43
Review of Systems
-
Constitutional: Fatigue
Respiratory: No Symptoms
Cardiac: No Symptoms
Abdomen/GI: No Symptoms
: Other (loco)
Physical Exam
-
General - no acute distress
Abdomen - soft, non-tender, gravid
Genitalia - loco in place
[2024-02-28] MEDS: TUMS CHEWABLE TABLET 400 MG PO ×4 (07:21→22:25)
--- NOTE | 2024-02-28 08:00 | PTCARENOTE ---
Assumed care of pt. VSS. Sinus Rhythm. Pt without complaints of pain. Afebrile. Diet advanced to regular but pt requesting to sleep. [place] in place draining ample pink/yellow urine. NSS infusing as ordered. heart monitoring and TOCO applied
and monitored by L&D.
--- NOTE | 2024-02-28 10:00 | PTCARENOTE ---
heart monitoring stopped as ordered by Dr. Ayala at 0850.
--- NOTE | 2024-02-28 10:01 | W.PN.HOSP.TC ---
Today's Communication/Plan
-
Antibiotics fluids. Transfer to OB
Assessment / Plan
Assessment / Plan
Physical Exam
General: Well Developed, Well Nourished and Conversant
HEENT: NormoCephalic, Anicteric and Atraumatic
Respiratory: Clear and Non Labored Respirations
Cardiac: S1/S2, Regular Rhythm and Tachycardia
GI: Soft and gravid uterus, other (Gravid uterus palpable on exam)
Genito-urinary: Other (Mild right flank tenderness to palpation)
Musculoskeletal: No Clubbing and No Cyanosis
Skin: Warm and Dry
Neuro: Awake, Alert, Oriented and Nonfocal/grossly intact
Psych: Calm
A/P:
Sepsis secondary to Pyelonephritis with New Right Hydronephrosis
-Appreciate urology and [facility] input. Cystoscopy right retrograde and stent.
-On antibiotics, Arroyo catheter, IV fluid.
-Discussed with OB today (Dr. Giselle Ayala) and will transfer to their service. Will remain available for any questions, please recall as needed.
, 26 Weeks Gestation
-Consult Obstetrics-she will be transferred to their service.
DVT proph: SCDs
Code Status: Full Code
Anticipated Discharge: 24 - 48 hours
Subjective/Interval History
-
Date of Service: February 28, 2024
Patient with some abdominal discomfort. Denies chest pain or shortness of breath. Afebrile
Objective Data
-
Labs:
Laboratory Results
02/28/24 02/28/24 02/28/24
01:42 01:43 06:06
WBC 4.3 L 20.8 H
Hgb 13.0 10.4 L
Hct 38.5 29.2 L
Plt Count 189 151 D
PT 13.1
INR 0.95
Sodium Cancelled 138
Potassium Cancelled 5.1 D
Chloride Cancelled 104
Carbon Dioxide Cancelled 16 L
BUN Cancelled 9
Creatinine Cancelled 0.7
Glucose Cancelled 116 H
Calcium Cancelled 10.6 H
Total Bilirubin 0.6
AST 27
ALT 20
Alkaline Phosphatase 69
Vital Signs:
Vital Signs
Temp Pulse Resp BP Pulse Ox
98.5 F 83 22 93/59 94
02/28/24 08:25 02/28/24 08:30 02/28/24 08:30 02/28/24 08:30 02/28/24 08:15
I&O
02/27/24 02/28/24 02/29/24
06:59 06:59 06:59
Intake Total 825 / 825
Output Total 1200 / 1200
Balance -375 / -375
[2024-02-28] MEDS: TYLENOL 650 MG PO ×2 (11:44→18:13)
--- NOTE | 2024-02-28 11:59 | PTCARENOTE ---
Report given to L&D. Tylenol given as requested by pt for R flank pain.
--- NOTE | 2024-02-28 12:45 | CM ---
CM following re: discharge planing.
Reviewed pt's chart, met with pt.
Pt is a 28 year old female, admitted with primary dx of s/p right ureteral stent.
Pt reports she lives with mother and a brother, 2SH, 3 steps to enter. 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 Pt is aware she will be transferred to Maternity unit.
PCP: [facility]
Pharmacy: [facility].
D/C plan: home no needs. Family to transport.
CM will follow with discharge plan updates as needed.
[2024-02-28] MEDS: NSS IV (14:50)
[2024-02-28] MEDS: STERILE WATER FOR INJECTION 10 ML IV (20:05)
[2024-02-28] MEDS: ROCEPHIN 1000 MG IV (20:05)
[2024-02-29] MEDS: TYLENOL 650 MG PO ×3 (00:01→20:14)
[2024-02-29] MEDS: MORPHINE SULFATE 2 MG IV ×4 (00:02→22:05)
[2024-02-29] MEDS: NSS 1000 IV ×2 (06:15→22:09)
--- NOTE | 2024-02-29 10:10 | W.PN.URO.CBU ---
Today's Communication / Plan
-
d/c Arroyo
abx per OB
Assessment / Plan
-
UTI/pyelo/ E.coli sepsis
right hydro- suspect uterine compression
s/p right ureteral stent
Diagnosis
-
Date of Service: February 29, 2024
-
Patient Diagnosis:
UTI/pyelo
right hydro- suspected due to uterine compression
Post Op Day: 1
right ureteral stent 02/27
Objective
-
Vital Signs
Temp Pulse Resp BP Pulse Ox
98.5 F 95 22 100/62 99
02/28/24 08:25 02/28/24 11:15 02/28/24 11:15 02/28/24 10:45 02/28/24 11:15
Intake and Output
02/28/24 02/29/24 03/01/24
06:59 06:59 06:59
Intake Total 825 / 950 500 / 500
Output Total 1200 / 1200 850 / 850
Balance -375 / -250 -350 / -350
Intake:
IV fluids (Total) 825 / 950 500 / 500
Normosol 200 / 200
Nss 1,000 ml @ 125 mls/hr IV . 625 / 750 500 / 500
Q8H SUSHANT Rx#:[id number]
Output:
Urine, Arroyo 1200 / 1200 850 / 850
E. coli in blood
Physical Exam
-
General - well developed, well nourished, no acute distress
Chest - clear bilaterally
Abdomen - soft, non-tender, positive bowel sounds, no CVAT, no incisional pain or distention
Genitalia - normal
Rectal - normal
Skin - warm & dry with no rash
Neuro - AOx3, no motor deficits
Extremities - no clubbing, no cyanosis, no edema
Incision - clean, dry
Dressing - clean, dry, intact
[2024-02-29 10:32] LABS: % Basophils 0.3 % (0-2); % Eosinophils 0.2 % (0-6); % Immature Granulocytes 0.4 % (0-0.5); % Lymphocytes 8.2 % (20.5-51.1); % Monocytes 4.6 % (1.7-9.3); % Neutrophils 86.3 % (42.2-75.2); Absolute Lymphocytes 0.8 10^3/uL (1.2-3.4); Absolute Monocytes 0.4 10^3/uL (0.1-0.6); Absolute Neutrophils 8.1 10^3/uL (1.4-6.5); Hematocrit 26.6 % (37.0-47.0); Hemoglobin 9.3 g/dL (12.0-16.0); Mean Corpuscular Hgb 31.3 pg (27.0-31.0); Mean Corpuscular Volume 89.6 fL (81.0-99.0); Mean Platelet Volume 10.7 fL (7.4-10.4); Nucleated Red Blood Cells % 0 %; Platelet Count 146 10^3/uL (130-400); Red Blood Cell Count 2.97 10^6/uL (4.20-5.40); Red Cell Dist. Width 13.2 % (11.5-14.5); White Blood Cell Count 9.3 10^3/uL (4.8-10.8)
[2024-02-29 10:56] LABS: ALT (SGPT) 19 U/L (0-35); AST (SGOT) 26 U/L (14-36); Albumin 2.7 g/dl (3.5-5.0); Alkaline Phosphatase 61 U/L (38-126); Blood Urea Nitrogen 4 mg/dl (7-17); Calcium 8.9 mg/dl (8.4-10.2); Carbon Dioxide 21 mmol/L (22-30); Chloride 104 mmol/L (98-107); Estimated Creatinine Clearance > 125 ml/min; Glucose 82 mg/dl (70-99); Potassium 3.4 mmol/L (3.5-5.1); Sodium 131 mmol/L (135-145); Total Bilirubin 0.3 mg/dl (0.2-1.3); Total Protein 5.2 g/dl (6.3-8.2); eGFR > 60.00
[2024-02-29] MEDS: TUMS CHEWABLE TABLET 400 MG PO ×2 (16:05→21:47)
[2024-02-29] MEDS: ZOVIRAX OINTMENT 5% 1 APPLIC TOPICAL ×2 (18:00→22:10)
[2024-02-29] MEDS: ROCEPHIN 1000 MG IV (20:01)
[2024-02-29] MEDS: STERILE WATER FOR INJECTION 10 ML IV (20:01)
[2024-03-01] MEDS: NSS 1000 IV ×2 (05:25→14:00)
[2024-03-01] MEDS: MORPHINE SULFATE 2 MG IV ×3 (05:34→21:49)
--- NOTE | 2024-03-01 07:30 | W.PN.URO.CBU ---
Today's Communication / Plan
-
abx
to f/u with Dr Grey
Assessment / Plan
-
UTI/pyelo/ E.coli sepsis
right hydro- suspect uterine compression
s/p right ureteral stent
Diagnosis
-
Date of Service: March 01, 2024
-
Patient Diagnosis:
UTI/pyelo
right hydro- suspected due to uterine compression
Post Op Day: 1
right ureteral stent 02/27
Subjective
-
'better'
Objective
-
Vital Signs
Temp Pulse Resp BP Pulse Ox
98.5 F 95 22 100/62 99
02/28/24 08:25 02/28/24 11:15 02/28/24 11:15 02/28/24 10:45 02/28/24 11:15
Intake and Output
02/29/24 03/01/24 03/02/24
06:59 06:59 06:59
Intake Total 500 / 500
Output Total 850 / 850
Balance -350 / -350
Intake:
IV fluids (Total) 500 / 500
Nss 1,000 ml @ 125 mls/hr IV . 500 / 500
Q8H SUSHANT Rx#:[id number]
Output:
Urine, Arroyo 850 / 850
Laboratory Results
02/29/24 10:16
02/29/24 10:16
micro: E. coli
Physical Exam
-
General - no acute distress; was asleep in bed
[2024-03-01] MEDS: ZOVIRAX OINTMENT 5% 1 APPLIC TOPICAL ×5 (08:00→23:00)
[2024-03-01] MEDS: TUMS CHEWABLE TABLET 400 MG PO ×2 (16:20→19:42)
[2024-03-01] MEDS: STERILE WATER FOR INJECTION 10 ML IV (19:52)
[2024-03-01] MEDS: ROCEPHIN 1000 MG IV (19:52)
[2024-03-02] MEDS: ZOVIRAX OINTMENT 5% 1 APPLIC TOPICAL ×2 (08:30→13:40)
[2024-03-02 08:46] LABS: % Basophils 0.5 % (0-2); % Eosinophils 0.9 % (0-6); % Immature Granulocytes 0.5 % (0-0.5); % Lymphocytes 19.3 % (20.5-51.1); % Monocytes 6.3 % (1.7-9.3); % Neutrophils 72.5 % (42.2-75.2); Absolute Eosinophils 0.1 10^3/uL (0-0.7); Absolute Lymphocytes 1.3 10^3/uL (1.2-3.4); Absolute Monocytes 0.4 10^3/uL (0.1-0.6); Absolute Neutrophils 4.7 10^3/uL (1.4-6.5); Hematocrit 28.4 % (37.0-47.0); Hemoglobin 9.8 g/dL (12.0-16.0); Mean Corp Hgb Conc. 34.5 g/dL (33.0-37.0); Mean Corpuscular Volume 89.9 fL (81.0-99.0); Mean Platelet Volume 10.5 fL (7.4-10.4); Nucleated Red Blood Cells % 0 %; Platelet Count 171 10^3/uL (130-400); Red Blood Cell Count 3.16 10^6/uL (4.20-5.40); Red Cell Dist. Width 12.8 % (11.5-14.5); White Blood Cell Count 6.5 10^3/uL (4.8-10.8)
[2024-03-02 08:53] LABS: ALT (SGPT) 16 U/L (0-35); AST (SGOT) 21 U/L (14-36); Albumin 2.8 g/dl (3.5-5.0); Alkaline Phosphatase 75 U/L (38-126); Blood Urea Nitrogen 4 mg/dl (7-17); Calcium 9.2 mg/dl (8.4-10.2); Carbon Dioxide 25 mmol/L (22-30); Chloride 104 mmol/L (98-107); Estimated Creatinine Clearance > 125 ml/min; Glucose 77 mg/dl (70-99); Potassium 3.8 mmol/L (3.5-5.1); Sodium 135 mmol/L (135-145); Total Bilirubin 0.2 mg/dl (0.2-1.3); Total Protein 5.5 g/dl (6.3-8.2); eGFR > 60.00
[2024-03-02] MEDS: FEOSOL 325 MG PO (13:40)
[2024-03-02] MEDS: AUGMENTIN 875 MG/125 MG 1 TABLET PO (13:40)
== END 2024-03-02 15:06 | disposition home or self-care (01) | DRG 817 ==
LOC: LDRP 22:48
PROVIDERS: Clinical Nurse Specialist Family Health; Emergency Medicine; Nurse Practitioner Primary Care; Obstetrics & Gynecology; Physician Assistant Medical; ADMITTING PHYSICIAN Internal Medicine; ATTENDING PHYSICIAN Obstetrics & Gynecology; CONSULT PHYSICIAN Specialist; CONSULT PHYSICIAN Student in an Organized Health Care Education/Training Program; EMERGENCY PHYSICIAN Student in an Organized Health Care Education/Training Program; FAMILY PHYSICIAN Family Medicine
PROC: 0T768DZ Dilation of Right Ureter with Intraluminal Device, Via Natural or Artificial Opening Endoscopic (ICD-10-PCS; 2024-02-28)
DX: O98.812 Other maternal infectious and parasitic diseases complicating pregnancy, second trimester (principal); A41.51 Sepsis due to Escherichia coli [E. coli]; O23.02 Infections of kidney in pregnancy, second trimester; N13.6 Pyonephrosis; O36.8320 Maternal care for abnormalities of the fetal heart rate or rhythm, second trimester, not applicable or unspecified; O99.342 Other mental disorders complicating pregnancy, second trimester; F90.9 Attention-deficit hyperactivity disorder, unspecified type; Z3A.26 26 weeks gestation of pregnancy; Z87.891 Personal history of nicotine dependence; Z87.440 Personal history of urinary (tract) infections; Z87.442 Personal history of urinary calculi
CPT/HCPCS: 74018; 76000; 76775; 76815; 76816; 80053; 81003; 81015; 83605; 83735; 84100; 84145; 85025; 85027; 85610; 86850; 86900; 86901; 87040; 87077; 87086; 87149; 87186; 87205; 87502; 87811; 93005; 96361; 96374; 96375; 99285; 99406; A4300; C1758; C2617

== ENCOUNTER 2024-03-26 06:23 | Day surgery (SDC) | payer OTHER, SELFPAY ==
--- NOTE | 2024-03-24 15:24 | PTCARENOTE ---
Abn ECG 02/27/[address] Portillo, no further intervention.
--- NOTE | 2024-03-24 15:38 | PTCARENOTE ---
Hgb 9.8, Little at Dr. Grey's office aware.
[2024-03-26] VITALS (11 sets, daily range): BP systolic 83–137; BP diastolic 56–74; BMI 27.0
[2024-03-26] MEDS: NORMOSOL-R/PLASMALYTE-A 1000 IV (10:00)
== END 2024-03-26 16:35 | disposition home or self-care (01) ==
LOC: SDS 06:23
PROVIDERS: ATTENDING PHYSICIAN Specialist
DX: N13.30 Unspecified hydronephrosis (principal)
CPT/HCPCS: 52332; 52351; 74420; 76000; 87086; C1758; C2617

== ENCOUNTER 2024-04-15 22:12 | Observation (INO) | payer OTHER, SELFPAY ==
[2024-04-15 22:33] VITALS: BP 113/74; BMI 27.8
[2024-04-15] MEDS: LR 1000 IV (22:42)
[2024-04-15 22:56] LABS: Urine Albumin 4+ (Neg - Trace); Urine Bilirubin Negative (Negative); Urine Character Cloudy (Clear); Urine Color Amber; Urine Glucose Negative (Negative); Urine Ketone 1+ (Negative); Urine Leukocyte 3+ (Negative); Urine Nitrite Positive (Negative); Urine Occult Blood 4+ (Negative); Urine Urobilinogen 1+ (Neg - 1+); Urine pH 6.5 (5.0-9.0)
[2024-04-15 22:57] LABS: % Basophils 0.3 % (0-2); % Eosinophils 1.2 % (0-6); % Immature Granulocytes 0.3 % (0-0.5); % Lymphocytes 22.6 % (20.5-51.1); % Monocytes 5.3 % (1.7-9.3); % Neutrophils 70.3 % (42.2-75.2); Absolute Eosinophils 0.1 10^3/uL (0-0.7); Absolute Lymphocytes 2.6 10^3/uL (1.2-3.4); Absolute Monocytes 0.6 10^3/uL (0.1-0.6); Absolute Neutrophils 8.2 10^3/uL (1.4-6.5); Hematocrit 33.5 % (37.0-47.0); Hemoglobin 11.9 g/dL (12.0-16.0); Mean Corp Hgb Conc. 35.5 g/dL (33.0-37.0); Mean Corpuscular Hgb 30.8 pg (27.0-31.0); Mean Corpuscular Volume 86.8 fL (81.0-99.0); Mean Platelet Volume 10.5 fL (7.4-10.4); Nucleated Red Blood Cells % 0 %; Platelet Count 226 10^3/uL (130-400); Red Blood Cell Count 3.86 10^6/uL (4.20-5.40); Red Cell Dist. Width 12.8 % (11.5-14.5); White Blood Cell Count 11.6 10^3/uL (4.8-10.8)
[2024-04-15 23:09] LABS: ALT (SGPT) 13 U/L (0-35); AST (SGOT) 17 U/L (14-36); Albumin 4.2 g/dl (3.5-5.0); Alkaline Phosphatase 89 U/L (38-126); Blood Urea Nitrogen 14 mg/dl (7-17); Calcium 10.8 mg/dl (8.4-10.2); Carbon Dioxide 24 mmol/L (22-30); Chloride 102 mmol/L (98-107); Estimated Creatinine Clearance > 125 ml/min; Glucose 85 mg/dl (70-99); Potassium 3.6 mmol/L (3.5-5.1); Sodium 134 mmol/L (135-145); Total Bilirubin 0.6 mg/dl (0.2-1.3); Total Protein 7.1 g/dl (6.3-8.2); eGFR > 60.00
[2024-04-15 23:10] LABS: Urine Bacteria Moderate (Negative); Urine Red Blood Cell >100 /HPF (0-2); Urine Squamous Cell 0-2 /LPF (Few)
[2024-04-15] MEDS: CELESTONE SOLUSPAN 2 MG IM (23:15)
[2024-04-16] MEDS: ADALAT 10 MG PO ×4 (01:11→18:03)
[2024-04-16] MEDS: NSS 1000 IV ×2 (01:18→21:28)
[2024-04-16] MEDS: STERILE WATER FOR INJECTION 10 ML IV (01:24)
[2024-04-16] MEDS: ROCEPHIN 1000 MG IV (01:24)
[2024-04-16] MEDS: FLUSH (NSS) 10 FLUSH IV ×2 (01:42→03:50)
--- NOTE | 2024-04-16 09:24 | CON.MD ---
Consultation - Medical
-
see dictated note
pt 33 weeks preg
hx of UTI
presented with pain and right hydro- stent placed
stent exchanged 03/26 with plan to perform last exchange before delivery or second week of april
maintained on daily keflex
she initially did well with stent- but has had sig colic with negative ucx's
renal u/s with stent positioned and no sig hydro
now admitted with RLQ pain/fever/elevated wbc and + ua (although this is not unusual with just stent in)
currently appears nontoxic
f/u ucx- if negative- can resume antibx prophylaxis and outpt stent exchange
if ucx is +- then probably need to exchange stent (if ok with ob and anesthesia)- during this admit through iv antibx window
will follow
[2024-04-16] MEDS: NSS IV ×2 (11:58→21:16)
[2024-04-16] MEDS: TUMS EX (EXTRA STRENGTH) CHEWABLE TABLET 600 MG PO ×2 (12:36→20:13)
--- NOTE | 2024-04-16 19:15 | CON.NEO ---
Consultation
-
Date/Time Consultation Requested: 04/16 1899
Date/Time Consultation Performed: 04/16 1929
Requesting Provider: dr Tabares
Performing Provider: Dr Cordova
Reason for Consultation: labor
Consultation - Neonatology
Maternal Labs
Blood Type: AB Positive
Antibody Screen: Negative
RPR: Nonreactive
Rubella: Immune
Hep B S Ag: Negative
Hep C: Negative
HIV: Nonreactive
Group B Strep: Unknown (pending)
Chlamydia/GC: Unavailable
Consult
Points discussed at consult:
29 year old mom presented on 04/15 at 33 1/7 wks with ? labor pains , h/o severe right hydronephrosis and s/p stent placement 03/26/24. course significant for pyelonephritis, History of Marijuana and Aderall use in early .
Mom has received one dose Beta 04/15 with second dose tonight . GBS screening done receiving Procardia, s/p Rocephin and being monitored closely for any infection. Cultures are pending. Plan to observe through tonight with possible discharge in am
unless things change
We did the consult at 33 2/7 wks with mom ( FOB is involved but not stay with her this is a boy and first child for both parents ) Mom is staying with her parents and siblings and for now does not work
- Management at delivery including the possibility of CPAP/intubation/surfactant discussed
- Respiratory: RDS possibility with possibility of worsening for 24-48 hrs, management including CPAP/surfactant/ventilator support may be required
- Nutrition: Hypoglycemia, need for IV fluids, gradual feed advance, Gavage feeding, importance of colostrum feeding, initiation of expression of colostrum within 3-4 hours, availability of donor milk, safety fo donor milk etc. were discussed.
- Procedures: Intubation, CPAP, IV placement, blood tests, gavage feedings were discussed
-
- Jaundice possibility and need for phototherapy discussed
- Family Centered Care: Discussed FCC with emphasis on parental participation during sign off and during management rounds and is encouraged. Availability of twyla eyes camera also discussed
- Mom wants to Breast feed and in agreement for use of Donor Breast milk until her milk is available she has chosen [facility] as her chosen attendance officer.
Thanks for given us the opportunity to discuss her plan of care.
Face to Face Time
Total Hkxe-jb-Pyod Time (in Minutes): 20 min
[2024-04-16] MEDS: TYLENOL 1000 MG PO (21:28)
[2024-04-16] MEDS: CELESTONE SOLUSPAN 2 MG IM (23:18)
[2024-04-16] MEDS: ADALAT PO (23:58)
[2024-04-17] MEDS: FLUSH (NSS) 1 FLUSH IV ×2 (02:02→02:10)
[2024-04-17] MEDS: ROCEPHIN 1000 MG IV (02:03)
[2024-04-17] MEDS: STERILE WATER FOR INJECTION 10 ML IV (02:03)
[2024-04-17] MEDS: NSS 1000 IV ×3 (05:15→21:21)
[2024-04-17 09:35] LABS: Hemoglobin 10.5 g/dL (12.0-16.0); Mean Corpuscular Hgb 30.4 pg (27.0-31.0); Mean Platelet Volume 10.6 fL (7.4-10.4); Platelet Count 212 10^3/uL (130-400); Red Blood Cell Count 3.45 10^6/uL (4.20-5.40); Red Cell Dist. Width 12.9 % (11.5-14.5); White Blood Cell Count 9.9 10^3/uL (4.8-10.8)
--- NOTE | 2024-04-17 11:18 | W.PN.URO.CBU ---
Today's Communication / Plan
-
await ucx
Assessment / Plan
-
right hydro due to uterine compression with stent- last exchanged 03/27
hx of UTI- cx 03/27 negative
? renal colic or UTI
pt stable
await ucx
if negative- ok to discharge with pain meds and resume daily cephalexin with planned outpt stent change in 2 weeks
if cx +- would keep on iv antibx and plan for stent chnage on saturday
reviewed with pt and dr hinojosa
Diagnosis
-
Date of Service: April 17, 2024
-
Patient Diagnosis:
33 weeks preg
right hydro with stent
UTI
Subjective
-
pt looks and feels fine
says urine is still bloody
when on ivf- minimal sx's
no fevers/wbc nl
ucx pending
Objective
-
Vital Signs
Temp Pulse Resp BP
97.6 F 82 18 110/69
04/15/24 22:33 04/16/24 18:03 04/15/24 22:33 04/16/24 18:03
Laboratory Results
04/17/24 09:17
04/15/24 22:43
Review of Systems
-
Constitutional: Fatigue
Respiratory: No Symptoms
Cardiac: No Symptoms
Abdomen/GI: No Symptoms
: Frequency and Dark Urine
Physical Exam
-
General -no acute distress
[2024-04-17] MEDS: TUMS EX (EXTRA STRENGTH) CHEWABLE TABLET 600 MG PO (19:52)
[2024-04-18] MEDS: ROCEPHIN 1000 MG IV (02:08)
[2024-04-18] MEDS: FLUSH (NSS) 1 FLUSH IV ×2 (02:08→02:15)
[2024-04-18] MEDS: STERILE WATER FOR INJECTION 10 ML IV (02:08)
--- NOTE | 2024-04-18 07:21 | W.PN.URO.CBU ---
Today's Communication / Plan
-
discharge
Assessment / Plan
-
right hydro due to uterine compression with stent- last exchanged 03/27
hx of UTI- cx 03/27 negative
recent ucx lactobacillus only
pt stable
reviewed with pt and ob
okay for discharge with hydration and continuation of daily antibx
will call saturday to arrange scheduled stent excahnge
return to hospital criteria reviewed
Diagnosis
-
Date of Service: April 18, 2024
-
Patient Diagnosis:
33 weeks preg
right hydro with stent
Subjective
-
pt feels fine
no fevers
ucx + for lacto
Objective
-
Vital Signs
Temp Pulse Resp BP
97.6 F 82 18 110/69
04/15/24 22:33 04/16/24 18:03 04/15/24 22:33 04/16/24 18:03
Laboratory Results
04/17/24 09:17
04/15/24 22:43
Review of Systems
-
Constitutional: No Symptoms
Respiratory: No Symptoms
Cardiac: No Symptoms
Abdomen/GI: No Symptoms
: Frequency and Dark Urine
Physical Exam
-
General - no acute distress
== END 2024-04-18 09:41 | disposition home or self-care (01) | DRG 832 ==
LOC: LDRP 22:12
PROVIDERS: ADMITTING PHYSICIAN Obstetrics & Gynecology; CONSULT PHYSICIAN Pediatrics; CONSULT PHYSICIAN Specialist
DX: O99.891 Other specified diseases and conditions complicating pregnancy (principal); N13.30 Unspecified hydronephrosis; O21.2 Late vomiting of pregnancy; Z3A.33 33 weeks gestation of pregnancy; Z96.0 Presence of urogenital implants; Z87.440 Personal history of urinary (tract) infections; Z87.891 Personal history of nicotine dependence
CPT/HCPCS: 76770; 80053; 81003; 81015; 85025; 85027; 87070; 87086

== ENCOUNTER 2024-05-06 13:24 | Observation (INO) | payer OTHER, SELFPAY ==
[2024-05-06 13:32] VITALS: BP 106/72; BMI 27.8
[2024-05-06] MEDS: LR 1000 IV ×2 (14:53→15:53)
[2024-05-06] MEDS: TUMS CHEWABLE TABLET 200 MG PO (17:14)
== END 2024-05-06 18:38 | disposition home or self-care (01) ==
LOC: LDRP 13:24
PROVIDERS: ADMITTING PHYSICIAN Student in an Organized Health Care Education/Training Program
DX: O47.03 False labor before 37 completed weeks of gestation, third trimester (principal); O36.5930 Maternal care for other known or suspected poor fetal growth, third trimester, not applicable or unspecified; O23.03 Infections of kidney in pregnancy, third trimester; O99.891 Other specified diseases and conditions complicating pregnancy; N13.30 Unspecified hydronephrosis; Z3A.36 36 weeks gestation of pregnancy
CPT/HCPCS: 86850; 86900; 86901; G0378

== ENCOUNTER 2024-05-07 06:08 | Day surgery (SDC) | payer OTHER, SELFPAY ==
[2024-05-07] VITALS (11 sets, daily range): BP systolic 74–105; BP diastolic 46–78; BMI 27.9
--- NOTE | 2024-05-07 11:27 | PTCARENOTE ---
Patient's mom called [facility] demanding to know if her daughter was at the hospital. Informed mom that we cannot give out patient information over the phone, it would be a HIPAA violation. Mom continued to lash out over the phone saying 'how is she
supposed to know how or where her daughter is.' Of note - patient is NOT a minor and came the hospital with her sister. Provided emotional support over the phone, but the mom continued to be upset. Patient's mom then hung up mid conversation.
[2024-05-07] MEDS: TYLENOL 650 MG PO (12:00)
== END 2024-05-07 14:45 | disposition home or self-care (01) ==
LOC: SDS 06:08
PROVIDERS: ATTENDING PHYSICIAN Specialist
DX: O23.13 Infections of bladder in pregnancy, third trimester (principal); O26.893 Other specified pregnancy related conditions, third trimester; N13.39 Other hydronephrosis; Z3A.36 36 weeks gestation of pregnancy; Z87.891 Personal history of nicotine dependence; Z87.440 Personal history of urinary (tract) infections
CPT/HCPCS: 52332; 74018; 76000; 87086; C1758; C2617

== ENCOUNTER 2024-05-12 19:29 | Observation (INO) | payer OTHER, SELFPAY ==
[2024-05-12 19:33] VITALS: BMI 28.4
[2024-05-12] MEDS: LR 1000 IV ×2 (20:00→22:14)
[2024-05-12 20:14] VITALS: BP 102/78
[2024-05-12 20:15] LABS: % Basophils 0.2 % (0-2); % Immature Granulocytes 0.4 % (0-0.5); % Lymphocytes 24.9 % (20.5-51.1); % Monocytes 5.6 % (1.7-9.3); % Neutrophils 67.9 % (42.2-75.2); Absolute Eosinophils 0.1 10^3/uL (0-0.7); Absolute Immature Granulocytes 0.1 10^3/uL (0-0.05); Absolute Lymphocytes 3.5 10^3/uL (1.2-3.4); Absolute Monocytes 0.8 10^3/uL (0.1-0.6); Absolute Neutrophils 9.6 10^3/uL (1.4-6.5); Hematocrit 32.4 % (37.0-47.0); Hemoglobin 11.7 g/dL (12.0-16.0); Mean Corp Hgb Conc. 36.1 g/dL (33.0-37.0); Mean Corpuscular Hgb 30.7 pg (27.0-31.0); Mean Platelet Volume 10.7 fL (7.4-10.4); Nucleated Red Blood Cells % 0 %; Platelet Count 229 10^3/uL (130-400); Red Blood Cell Count 3.81 10^6/uL (4.20-5.40); Red Cell Dist. Width 13.4 % (11.5-14.5); White Blood Cell Count 14.2 10^3/uL (4.8-10.8)
[2024-05-12] MEDS: TUMS CHEWABLE TABLET 200 MG PO (21:15)
[2024-05-12] MEDS: STADOL 1 MG IV (22:14)
[2024-05-13] MEDS: STADOL 1 MG IV ×2 (03:10→06:19)
--- NOTE | 2024-05-13 04:24 | DOWNTIME ---
There was a [employer] Downtime on 05/13/2024 from 0100 to 05/14/2023 at 0420 . Downtime documentation of patient's care, including medication administrations, has been reconciled in the electronic record per guidelines. Refer to the
patient's paper chart under the miscellaneous tab to see printed paper medication records and downtime forms.
[2024-05-13] MEDS: LR 1000 IV (08:00)
== END 2024-05-13 15:35 | disposition home or self-care (01) ==
LOC: LDRP 19:29
PROVIDERS: ADMITTING PHYSICIAN Obstetrics & Gynecology
DX: O47.1 False labor at or after 37 completed weeks of gestation (principal); Z3A.37 37 weeks gestation of pregnancy
CPT/HCPCS: 76815; 85025; 86850; 86900; 86901; G0378

== ENCOUNTER → 2024-05-14 13:33 | Outpatient (REF) | payer OTHER, SELFPAY | LOC: PNTC 13:33 | PROVIDERS: ATTENDING PHYSICIAN Student in an Organized Health Care Education/Training Program | DX: O26.849 Uterine size-date discrepancy, unspecified trimester (principal) | CPT/HCPCS: 59025 ==

== ENCOUNTER → 2024-05-20 11:13 | Outpatient (REF) | payer OTHER, SELFPAY | LOC: PNTC 11:13 | PROVIDERS: ATTENDING PHYSICIAN Student in an Organized Health Care Education/Training Program | DX: O26.849 Uterine size-date discrepancy, unspecified trimester (principal) | CPT/HCPCS: 59025; 76815 ==

== ENCOUNTER 2024-05-22 07:54 | Inpatient (IN) | payer OTHER, SELFPAY ==
[2024-05-22] MEDS: LR 1000 IV ×3 (08:30→19:13)
[2024-05-22 08:53] LABS: % Basophils 0.4 % (0-2); % Eosinophils 1.3 % (0-6); % Immature Granulocytes 0.3 % (0-0.5); % Lymphocytes 24.3 % (20.5-51.1); % Neutrophils 67.7 % (42.2-75.2); Absolute Eosinophils 0.1 10^3/uL (0-0.7); Absolute Lymphocytes 2.5 10^3/uL (1.2-3.4); Absolute Monocytes 0.6 10^3/uL (0.1-0.6); Absolute Neutrophils 6.8 10^3/uL (1.4-6.5); Hematocrit 33.2 % (37.0-47.0); Hemoglobin 11.9 g/dL (12.0-16.0); Mean Corp Hgb Conc. 35.8 g/dL (33.0-37.0); Mean Corpuscular Hgb 30.5 pg (27.0-31.0); Mean Corpuscular Volume 85.1 fL (81.0-99.0); Mean Platelet Volume 11.3 fL (7.4-10.4); Nucleated Red Blood Cells % 0 %; Platelet Count 207 10^3/uL (130-400); Red Cell Dist. Width 13.1 % (11.5-14.5); White Blood Cell Count 10.1 10^3/uL (4.8-10.8)
[2024-05-22 08:58] LABS: Glucose - Point of Care 75 mg/dl (70-99)
[2024-05-22 09:01] VITALS: BP 107/76; BMI 28.6
[2024-05-22] MEDS: PITOCIN 30 UNITS/NSS 500 ML IV (09:31)
[2024-05-22] MEDS: TUMS CHEWABLE TABLET 400 MG PO (11:18)
[2024-05-22] MEDS: SUBLIMAZE 100 MCG EPIDURAL (13:04)
[2024-05-22] MEDS: FENTANYL/BUPIVACAINE 100 EPIDURAL ×2 (13:05→21:04)
[2024-05-22] MEDS: TYLENOL 650 MG PO (23:04)
[2024-05-22] MEDS: MOTRIN 600 MG PO (23:05)
[2024-05-23 05:49] LABS: Hematocrit 28.5 % (37.0-47.0)
[2024-05-23] MEDS: MOTRIN 600 MG PO ×3 (06:47→19:20)
[2024-05-23] MEDS: TYLENOL 650 MG PO ×3 (06:47→19:20)
[2024-05-23] MEDS: PRENATAL PLUS 1 TABLET PO (08:35)
--- NOTE | 2024-05-23 10:24 | CM ---
CM reviewed chart and noted CM consult
Bedside meeting with mother/Martina and maternal grandmother/Jamese
mother notes strained relationship and dynamics with father who she is no longer in a relationship with
mother denies physical abuse or violence
Education provided on community resources to assist with navigating co-parenting
Emotional support provided
Community resources placed in dc packet per her request
Plan for baby and mother to return to maternal grandmother's house
mother has supplies and gifted breast pump from baby shower
Rx provided for pump per her request as she is not certain she is pleased with pump at home
[2024-05-23] MEDS: TUMS CHEWABLE TABLET 400 MG PO (11:08)
--- NOTE | 2024-05-23 12:32 | CON.MD ---
Consultation - Medical
-
see dictated note
pt well known to me
hx of pyelo and right hydro due to uterine compression
delivered yesterday
OB called to discuss stent plan
CT ordered- no stone seen- no hydro- stent in good position- BUT uterus still very large as expected
reviewed with dr bustamante and patient by phone- do not want to remove stent while in house until uterine size decreases
pt can pt discharged- should continue daily keflex and call office next week to arrange stent removal in office in 2-3 weeks
[2024-05-24] MEDS: MOTRIN 600 MG PO (01:20)
[2024-05-24] MEDS: TYLENOL 650 MG PO (01:21)
[2024-05-24] MEDS: TUMS CHEWABLE TABLET 400 MG PO (02:43)
[2024-05-24] MEDS: PRENATAL PLUS 1 TABLET PO (08:34)
--- NOTE | 2024-05-24 11:35 | CM ---
CM met with mother/Martina and maternal grandmother bedside
Ongoing strained dynamics with father and paternal extended family throughout admission
Safety planning completed and discussed resources for PPD and emotional support
Community resources provided as well as counseling providers through [address]
mother has selected [facility]
[2024-05-25 13:23] LABS: Syphilis/T. pallidum Ab Reflex Negative (Negative)
== END 2024-05-24 13:15 | disposition home or self-care (01) | DRG 806 ==
LOC: LDRP 07:54
PROVIDERS: ADMITTING PHYSICIAN Obstetrics & Gynecology
PROC: 10E0XZZ Delivery of Products of Conception, External Approach (ICD-10-PCS; 2024-05-22)
PROC: 10907ZC Drainage of Amniotic Fluid, Therapeutic from Products of Conception, Via Natural or Artificial Opening (ICD-10-PCS; 2024-05-22)
PROC: 4A1HXCZ Monitoring of Products of Conception, Cardiac Rate, External Approach (ICD-10-PCS; 2024-05-22)
PROC: 3E033VJ Introduction of Other Hormone into Peripheral Vein, Percutaneous Approach (ICD-10-PCS; 2024-05-22)
DX: O36.5930 Maternal care for other known or suspected poor fetal growth, third trimester, not applicable or unspecified (principal); N13.30 Unspecified hydronephrosis; Z37.0 Single live birth; O99.892 Other specified diseases and conditions complicating childbirth; O90.81 Anemia of the puerperium; O70.0 First degree perineal laceration during delivery; Z3A.38 38 weeks gestation of pregnancy; Z96.0 Presence of urogenital implants; Z87.442 Personal history of urinary calculi
CPT/HCPCS: 88307; 74176; 82962; 85014; 85018; 85025; 86780; 86850; 86900; 86901